=== PATIENT | male | born 1950 | race Two or more races ===

== ENCOUNTER 2019-04-29 15:39 | Outpatient (CLI) | payer OTHER | END 2019-04-29 15:40 | disposition home or self-care (01) | LOC: RAD 15:39 | DX: M25.561 Pain in right knee (principal) ==

== ENCOUNTER 2019-06-24 07:08 | Outpatient (CLI) | payer OTHER | END 2019-06-24 07:13 | disposition home or self-care (01) | LOC: MRI 07:08 | DX: M25.561 Pain in right knee (principal); M23.91 Unspecified internal derangement of right knee | CPT/HCPCS: 73718 ==

== ENCOUNTER 2019-07-22 06:22 | Outpatient (CLI) | payer OTHER ==
[2019-07-22] MEDS ORDERED: TAMS0.4C PO (10:15)
[2019-07-22] MEDS ORDERED: CASODEX50 MG PO (10:16)
[2019-07-22] MEDS ORDERED: AMBIEN5 MG PO (10:16)
[2019-07-22] MEDS ORDERED: CLONAZEPAM0.5 MG PO (10:16)
[2019-07-22] MEDS ORDERED: ZOLOFT50 MG PO (10:17)
[2019-07-22] MEDS ORDERED: FORTAMET500 MG PO (10:17)
[2019-07-22] MEDS ORDERED: LIPITOR40 M1 PO (10:17)
[2019-07-22] MEDS ORDERED: ZESTRIL5 MG PO (10:18)
== END 2019-07-22 06:35 | disposition home or self-care (01) ==
LOC: LAB 06:22
DX: D64.89 Other specified anemias (principal); E88.89 Other specified metabolic disorders; D68.8 Other specified coagulation defects; N39.0 Urinary tract infection, site not specified; Z22.322 Carrier or suspected carrier of Methicillin resistant Staphylococcus aureus; I10 Essential (primary) hypertension; I49.8 Other specified cardiac arrhythmias; Z76.89 Persons encountering health services in other specified circumstances

== ENCOUNTER 2019-10-25 10:10 | Day surgery (SDC) | payer OTHER ==
[~2019-10-25 10:10] MED LIST: AMBIEN5 MG PO; ATACAN PO; BICALUTAMIDE50 MG PO; CASODEX50 MG PO; CLONAZEPAM0.5 MG PO; FORTAMET500 MG PO; LIPITOR PO; LIPITOR40 M1 PO; TAMS0.4C PO; TRELSTAR3.75 M1 IM; ZESTRIL5 MG PO; ZOLOFT50 MG PO
== END 2019-10-25 19:15 | disposition home or self-care (01) ==
LOC: CIR.AMB 10:10
PROVIDERS: ATTEND Orthopaedic Surgery
DX: M23.251 Derangement of posterior horn of lateral meniscus due to old tear or injury, right knee (principal); M23.221 Derangement of posterior horn of medial meniscus due to old tear or injury, right knee; M22.41 Chondromalacia patellae, right knee; M12.261 Villonodular synovitis (pigmented), right knee